=== PATIENT | male | born 1990 | race Caucasian/White ===

== ENCOUNTER 2019-11-20 19:11 | Emergency (ER) | payer OTHER ==
[2019-11-20 19:20] VITALS: BP 143/82
--- NOTE | 2019-11-20 19:34 | ER Document Report ---
HPI - HPI Time Seen by Provider: 11/20/19 19:23 Pain Level: 2 Context: Patient is a 29-year-old male who presents emergency department with a chief complaint of right finger pain. About 30 minutes prior to arrival the patient had placed his fingers underneath a chair and got his right third digit caught underneath a metal piece of the chair. He was able to clean the area and noticed he had have his nail missing. He denies any loss of movement or sensation. He is up-to-date on his tetanus immunization. - ROS Systems Reviewed and Negative: Yes All other systems reviewed and negative - CONSTITUTIONAL Constitutional: DENIES: Fever, Chills - MUSCULOSKELETAL Musculoskeletal: REPORTS: Extremity pain - right 3rd finger - DERM Skin Color: Normal Notes: nail avulsion to distal half of right 3rd finger. Past Medical History - General Information source: Patient - Social History Smoking Status: Never Smoker Frequency of alcohol use: None Drug Abuse: None Family History: Reviewed & Not Pertinent Patient has suicidal ideation: No Patient has homicidal ideation: No Vertical Provider Document - CONSTITUTIONAL Agree With Documented VS: Yes Exam Limitations: No Limitations General Appearance: No Apparent Distress - INFECTION CONTROL TRAVEL OUTSIDE OF THE [place] IN LAST 30 DAYS: No - HEENT HEENT: Atraumatic, Normocephalic, PERRLA - RESPIRATORY Respiratory: No Respiratory Distress - CARDIOVASCULAR Cardiovascular: Bradycardia Pulses: Normal: Radial - MUSCULOSKELETAL/EXTREMETIES Musculoskeletal/Extremeties: FROM, Tender - NEURO Level of Consciousness: Awake, Alert, Appropriate Motor/Sensory: No Motor Deficit, No Sensory Deficit - DERM Integumentary: Warm, Dry, No Rash, Laceration - Right third digit partial nail avulsion Course - Re-evaluation Re-evalutation: 11/20/19 20:06 X-rays negative for any acute fractures. Patient will be placed in a finger splint to help protect his finger. We will put Xeroform, gauze, and then the splint on. Patient will be started on Keflex to prevent infection. I have very low suspicion for a tendon rupture, as the patient is able to flex and extend his finger with no difficulty. Patient will follow-up with his primary care provider as needed. Follow-up precautions were given. Verbal discharge instructions were given to the patient. They verbalized understanding. They are stable for discharge. - Vital Signs Vital signs: Temp Pulse Resp BP Pulse Ox 98.3 F 54 L 16 143/82 H 97 11/20/19 19:15 11/20/19 19:15 11/20/19 19:15 11/20/19 19:15 11/20/19 19:15 Discharge - Discharge Clinical Impression: Nail avulsion, finger Qualifiers: Encounter type: initial encounter Qualified Code(s): S61.309A - Unspecified open wound of unspecified finger with damage to nail, initial encounter Condition: Stable Disposition: HOME, SELF-CARE Instructions: Antibiotic Ointment Protection ([facility]), Prophylactic Antibiotic ([facility]), Soap Cleansing ([facility]) Additional Instructions: You were seen today in the emergency department for right third finger pain. You have a nail avulsion. Please keep the area clean and dry. Wash your finger twice a day with surgical scrub. Keep the splint on your finger to help protect the tip of your finger. Take the antibiotics to prevent infection. Follow-up with your primary care provider as needed. Prescriptions: Cephalexin Monohydrate [Keflex 500 mg Capsule] 500 mg PO Q6H 5 Days #20 capsule Referrals: [facility] [Provider Group] - Follow up as needed
--- NOTE | 2019-11-20 19:52 | RADIOLOGY REPORT (SQ) ---
EXAM DESCRIPTION: FINGER RIGHT COMPLETED DATE/TIME: 11/20/2019 7:38 pm REASON FOR STUDY: finger laceration COMPARISON: None. NUMBER OF VIEWS: Three views. TECHNIQUE: AP, lateral, and oblique images acquired of the right third finger. LIMITATIONS: None. FINDINGS: MINERALIZATION: Normal. BONES: No acute fracture or dislocation. No worrisome bone lesions. SOFT TISSUES: No soft tissue swelling. No foreign body. OTHER: No other significant finding. IMPRESSION: NO RADIOGRAPHIC EVIDENCE OF ACUTE INJURY. COMMENT: SITE OF TRAUMA/COMPLAINT MARKED/STAMP COMPLETED: Yes TECHNICAL DOCUMENTATION: JOB ID: [id number] 2010 [employer]- All Rights Reserved Reading location - IP/workstation name: [email or web address]
== END 2019-11-20 20:37 | disposition home or self-care (01) ==
LOC: ER 19:11
PROC: 2W3JX1Z Immobilization of Right Finger using Splint (ICD-10-PCS; principal; 2019-11-20)
DX: S61.309A Unspecified open wound of unspecified finger with damage to nail, initial encounter (principal); M79.644 Pain in right finger(s); W23.0XXA Caught, crushed, jammed, or pinched between moving objects, initial encounter
CPT/HCPCS: 99283